=== PATIENT | male | born 1970 | race Caucasian/White ===

== ENCOUNTER 2017-02-06 17:39 | Emergency (ER) | payer OTHER ==
[~2017-02-06 17:39] MED LIST: ALB/IPRATROPIUM/1 E1 INH; DICLOXAXILLIN250 MG PO; DOXYCYCLINE HY100 M3 PO; FLEXERIL10 MG PO; KEFLEX PO; KETOPROFEN PO; LORTAB 5/500 TA1 TA2 PO; MINIPRESS PO; MIRTAZAPINE30 M1 PO; MOBIC15 MG PO; NEURONTIN PO; NEURONTIN800 MG PO; NORCO1 TAB 10/3 PO; PRAZOSIN HCL2 MG PO; ROBAXIN 750750 M1 PO; TEMAZEPAM PO; TOFRANIL PO; TYLENOL #3 PO; VICODIN 5/500 T1 TAB PO; VOLTAREN75 MG PO
== END 2017-02-06 18:20 | disposition home or self-care (01) ==
LOC: CED 17:39
DX: T40.1X1A Poisoning by heroin, accidental (unintentional), initial encounter (principal); F17.210 Nicotine dependence, cigarettes, uncomplicated; Z79.899 Other long term (current) drug therapy
CPT/HCPCS: 99283